=== PATIENT | female | born 1945 | race Caucasian/White ===

== ENCOUNTER 2017-10-15 07:02 | Day surgery (SDC) | payer MEDICARE, BC ==
[~2017-10-15 07:02] MED LIST: ACETAMINOPHEN 1,000 MG/100 ML BTL IV ONE; CEFAZOLIN 2 Gram 2 GM/50 ML BAG IVPB ONE; FAMOTIDINE 20MG TABLET PO ONE; MECLIZINE 25 MG TABLET PO ONE; METOCLOPRAMIDE 10 MG TABLET PO ONE
[2017-10-15] MEDS ORDERED: LIDOCAINE 1% W/EPI 1:200,000 MPF 30ML SQ ONE (07:03)
[2017-10-15] MEDS ORDERED: BUPIVACAINE 0.75% W/EPI MPF 30ML VIAL IVP ONE (07:03)
--- NOTE | 2017-10-15 15:10 | Operative Note - [facility] ---
DATE OF SURGERY: 10/15/17 PREOPERATIVE DIAGNOSES: 1. POST LUMBAR LAMINECTOMY SYNDROME, ICD-10 CODE = M96.1. 2. LUMBAR RADICULITIS, ICD-10 CODE = M54.16 AND M54.17. 3. IMPLANTED SPINAL INFUSION SYSTEM HYDROMORPHONE. OPERATION: 1. FLUOROSCOPICALLY-GUIDED PLACEMENT OF CURVED 24-GAUGE NICE NEEDLE WITH ACCESS PORT PROGRAMMABLE PUMP AT LEFT POSTERIOR/SUPERIOR GLUTEAL MARGIN. 2. ATTEMPTED ASPIRATION TO CLEAR CATHETER OF OPIOID AND CSF MIXTURE UNSUCCESSFUL. SURGEON: FITZ OCHOA D.O. ANESTHESIA: NONE. ANESTHESIA PROVIDER: NONE. INDICATION: This patient presents with a history of a spinal infusion device with some indications of malfunction. A recent refill suggested predicted residual volume to be 4.5 mL, the actual aspirated volume was 11.5 mL, which suggested changes and abnormalities in the infusion characteristics. She is here for diagnostics to evaluate catheter and pump by way of a rotor study. SURGERY: Intravenous line was placed. There was no sedation, only monitoring. Sterile prep, sterile technique. Under imaging, the access port to the pump at both posterior gluteal margins was noted. Skin infiltrated, a curved 24-gauge Nice needle was inserted into the access port. Attempts to clear the catheter were unsuccessful. At that point, any further studies could not be performed. Needle removed. The area was cleaned. Transported to the Recovery Room. Our conclusion at this point is that we have a catheter obstruction either complete or directional. Regardless, the catheter will need to be replaced. This has been explained to the patient. She will be discharged to home. She will continue with oral medications. We will schedule the replacement as quickly as possible. cc: Dr. Granados JOB NUMBER: [id number] MTDD
== END 2017-10-15 08:35 | disposition home or self-care (01) ==
LOC: SUR 07:02
PROVIDERS: ATTEND Pain Medicine Interventional Pain Medicine
DX: T85.610A Breakdown (mechanical) of cranial or spinal infusion catheter, initial encounter (principal); M96.1 Postlaminectomy syndrome, not elsewhere classified; M54.16 Radiculopathy, lumbar region; M54.17 Radiculopathy, lumbosacral region; E78.00 Pure hypercholesterolemia, unspecified; I48.91 Unspecified atrial fibrillation; Z79.01 Long term (current) use of anticoagulants; E03.9 Hypothyroidism, unspecified
CPT/HCPCS: J3490

== ENCOUNTER 2017-10-28 05:52 | Day surgery (SDC) | payer MEDICARE, BC ==
[2017-10-28] MEDS ORDERED: BUPIVACAINE 0.75% W/EPI MPF 30ML VIAL IVP ONE (05:53)
[2017-10-28] MEDS ORDERED: FENTANYL PF 100MCG/2ML VIAL IV ONE (05:53)
[2017-10-28] MEDS ORDERED: CEFAZOLIN 1G VIAL IM ONE (05:53)
[2017-10-28] MEDS ORDERED: HYDROMORPHONE HCL 2 MG/ML VIAL IV ONE ×2 (05:53)
[2017-10-28] MEDS ORDERED: PROPOFOL 10 MG/ML VIAL IV ONE (05:53)
[2017-10-28] MEDS ORDERED: LIDOCAINE 2% MDV (20MG/ML) 20ML VIAL IV ONE (05:53)
[2017-10-28] MEDS ORDERED: LIDOCAINE 1% W/EPI 1:200,000 MPF 30ML SQ ONE (05:53)
[2017-10-28] MEDS ORDERED: MIDAZOLAM HCL 2MG/2ML VIAL IV ONE (05:53)
[2017-10-28] MEDS ORDERED: VANCOMYCIN HCL 1,000 MG in DEXTROSE 5 % IN WATER 250 ML IVPB ONE ×4 (06:00→18:20)
[2017-10-28] MEDS ORDERED: HYDROMORPHONE HCL/PF 0.002 MG in 0.9 % SODIUM CHLORIDE 10ML VIA 0.998 ML IVP ONE ×4 (06:00)
[2017-10-28] MEDS ORDERED: MECLIZINE 25 MG TABLET PO ONE (06:00)
[2017-10-28] MEDS ORDERED: FAMOTIDINE 20MG TABLET PO ONE (06:00)
[2017-10-28] MEDS ORDERED: ACETAMINOPHEN 1,000 MG/100 ML BTL IV ONE (06:00)
[2017-10-28] MEDS ORDERED: METOCLOPRAMIDE 10 MG TABLET PO ONE (06:00)
[2017-10-28] MEDS ORDERED: HYDROMORPHONE HCL 0.4 GM in 0.9 % SODIUM CHLORIDE 10ML VIA 20 ML IV ONE (06:00)
--- NOTE | 2017-10-28 07:24 | History and Physical Report ---
DATE: 10/28/2017. CHIEF COMPLAINT AND HISTORY OF CHIEF COMPLAINT: This is a patient with a history of a postlaminectomy radiculitis. She has a spinal opioid infusion system infusing hydromorphone for pain control. Over the last number of refills , there was a volume discrepancy identified. This was followed through time with a suspected abnormality with respect to functionality. A diagnostic procedure which attempted to aspirate and clear the catheter was unsuccessful suggesting catheter obstruction and possible pump failure. She is here for replacement of components. PAST MEDICAL HISTORY: Chronic cardiovascular disease with cardiac arrhythmia. PAST SURGICAL HISTORY: Lumbar spinal surgery, foot surgery, gallbladder surgery. EMPLOYMENT STATUS: Retired. MEDICATIONS ON ADMISSION: To be provided. ALLERGIES: List to be provided. SOCIAL HISTORY: Caffeine. FAMILY HISTORY: Diabetes, cancer. REVIEW OF SYSTEMS: The patient seems appropriate and in no acute distress. The remainder of the systems review shows headaches, cardiac abnormalities, depression, and difficulty sleeping. PHYSICAL EXAMINATION: General: Height is 5 feet, 8 inches. Weight is 200 pounds. Vital Signs: Not available. HEENT: Within normal limits. Lungs: Clear. Heart: Regular rate and rhythm. Abdomen: Nontender. Musculoskeletal: Examination of the musculoskeletal system shows a pump at the posterior gluteal margin. The incisional sites for the pump and spinal catheter are all intact. Sensory more[place] are intact. Chronic pain pattern is bilateral lower extremities. IMPRESSION: 1. POSTLUMBAR LAMINECTOMY SYNDROME. 2. INTRACTABLE RADICULITIS. 3. SPINAL OPIOID INFUSION SYSTEM WITH PUMP AND CATHETER FAILURE. PLAN: The patient is here for replacement of pump and catheter. An overnight stay will be required. She will be started at a lower dose of her current base rate of hydromorphone 3.5 mg a day; she will be started at 2.5 mg a day. She will be monitored overnight for side effects and will then be discharged in the morning. cc: Darryl Granados M.D. JOB NUMBER: [id number] MTDD
[2017-10-28] MEDS ORDERED: NALOXONE 0.4 MG/1 ML VIAL IVP PRN (09:38)
[2017-10-28] MEDS ORDERED: SENNOSIDES/DOCUSATE SODIUM UD CAPSULE PO PRN ×2 (09:38)
[2017-10-28] MEDS ORDERED: METOCLOPRAMIDE 10 MG TABLET PO PRN (09:38)
[2017-10-28] MEDS ORDERED: METOCLOPRAMIDE HCL 10 MG/2 ML VIAL IVP PRN (09:38)
[2017-10-28] MEDS ORDERED: ACETAMINOPHEN 325 MG TAB PO PRN (09:38)
[2017-10-28] MEDS ORDERED: AL HYDROX/MAG HYDROX 30ML UD PO PRN (09:38)
[2017-10-28] MEDS ORDERED: HYDROCODONE/APAP 7.5/325MG TABLET PO PRN ×2 (09:38)
[2017-10-28] MEDS ORDERED: HYDROMORPHONE HCL 2 MG/ML VIAL IM PRN (09:38)
[2017-10-28] MEDS ORDERED: HYDROMORPHONE HCL 1 MG/ML CPJ IM PRN (09:38)
[2017-10-28] MEDS ORDERED: TEMAZEPAM 15 MG CAPSULE PO PRN ×2 (09:38)
[2017-10-28] MEDS ORDERED: RINGERS SOLUTION,LACTATED 1,000 ML IV SCH (09:38)
[2017-10-28] MEDS ORDERED: DIPHENHYDRAMINE HCL 25 MG CAPSULE PO PRN ×2 (09:38)
[2017-10-28] MEDS ORDERED: DIPHENHYDRAMINE HCL IV 50 MG/ML VIAL IVP PRN ×2 (09:38)
--- NOTE | 2017-10-28 12:15 | RADIOLOGY REPORT ---
EXAM: LUMBAR SPINE, SINGLE VIEW HISTORY: STIMULATOR PLACEMENT. TECHNIQUE: A single AP view of the lumbar spine was performed. FINDINGS: Two stimulator devices are in place. One tip is located at the L1- L2 level. The other tip is located at the T8-T9 level. IMPRESSION: STIMULATOR TIPS HAVE BEEN PLACED. THE TIPS ARE LOCATED AT L1-L2 LEVEL AND T8- T9 LEVEL. JOB NUMBER: [id number] MTDD
[2017-10-28] MEDS: OXYCODONE/APAP 10MG-325MG TABLET PO PRN ×3 (13:48→21:49)
[2017-10-28] MEDS: PATIENT OWN MED: ALLOPURINOL 300 MG PO SCH (13:51)
[2017-10-28] MEDS: METHIMAZOLE 5 MG PO SCH (13:51)
[2017-10-28] MEDS: PROPAFENONE 225 MG PO SCH ×2 (13:51→21:52)
[2017-10-28] MEDS: ROSUVASTATIN 40 MG PO SCH (13:52)
--- NOTE | 2017-10-28 15:26 | Operative Note - [facility] ---
DATE OF SURGERY: 10/28/17 PREOPERATIVE DIAGNOSES: 1. POST LUMBAR LAMINECTOMY SYNDROME, ICD-CODE = M96.1. 2. LUMBAR RADICULITIS, ICD-10 CODE M54.16 AND M54.17. 3. SPINAL OPIOID INFUSION SYSTEM, PUMP AND CATHETER, NONFUNCTIONAL. OPERATION: 1. INCISION, SUBCUTANEOUS DISSECTION, AND REMOVAL OF INDWELLING SPINAL CATHETER. 2. INCISION, SUBCUTANEOUS DISSECTION, AND REMOVAL OF INDWELLING PROGRAMMABLE PUMP AT LEFT POSTERIOR GLUTEAL MARGIN. 3. FLUOROSCOPICALLY-GUIDED SPINAL ACCESS AT L3-4, PLACEMENT OF THIN-WALLED SPINAL CATHETER T10. 4. DIAGNOSTIC MYELOGRAPHY WITH RADIOLOGIC SUPERVISION AND INTERPRETATION. 5. INCISION, SUBCUTANEOUS DISSECTION, AND ANCHORING OF SPINAL CATHETER TO SUPRASPINOUS FASCIA USING ANCHORING DEVICE AND NONABSORBABLE SUTURE. 6. REVISION OF LEFT POSTERIOR GLUTEAL POUCH FOR PLACEMENT OF NEW PUMP IDENTIFIED A MEDTRONIC 20 ML PROGRAMMABLE PRE-FILLED HYDROMORPHONE 20 MG PER ML CONCENTRATION. 7. TUNNELING SPINAL CATHETER TO PUMP POUCH, INTERFACE SPINAL CATHETER WITH SECOND CATHETER COMPONENT TO PUMP. 8. ANTIBIOTIC IRRIGATION. BOVIE FOR HEMOSTASIS. PLACEMENT OF PUMP INTO POUCH SECURING TO FASCIA WITH NONABSORBABLE SUTURE AND PUMP EYELET. 9. CLOSURE OF INCISIONS VICRYL FOR FASCIA, RADHA FOR SKIN. 10. EPIDURAL BLOOD PATCH AT L4-5, 20 ML AUTOLOGOUS BLOOD STERILE TECHNIQUE LEFT ANTECUBITAL. 11. PROGRAMMING OF PUMP TO DELIVER BY CONTINUOUS INFUSION HYDROMORPHONE AT 2.5 MG A DAY. SURGEON: FITZ OCHOA D.O. ANESTHESIA: LOCAL SEDATION. ANESTHESIA PROVIDER: SILVER MICHELLE CRNA. INDICATION: This patient presents with a history of intractable postlaminectomy radiculitis. A spinal infusion system in place for a number of years began to fail approximately two to three months ago. She is here for replacement of pump and catheter. Diagnostics confirming catheter obstruction. PROCEDURE: Intravenous line, vital sign monitoring, IV sedation, prepped and draped sterile technique. Patient position prone. Sterile prep. Sterile technique. The previous incision for the spinal catheter infiltrated, incision made, and subcutaneous dissection was conducted to the catheter. The suture and the catheter removed. A pursestring placed to stop CSF leak. At the left posterior gluteal margin pump pouch site, skin infiltrated, incision made, and subcutaneous dissection was conducted to the pump. The pump and its connections removed. At the midline incisional site for the previous catheter, skin was infiltrated, incision was extended, and at L3-4 a 20-gauge spinal needle beveled with a long axis paramedian approach was used to gain entrance into the spinal space. With CSF flow, that noted laterally with careful and meticulous technique, no paresthesias noted. Thin-walled catheter was advanced without difficulty T10. Diagnostic myelography confirming appropriate flow characteristics for the spinal space. No bolus given. The catheter was then anchored to the supraspinous fascia, once the needle was removed, with an anchoring device and nonabsorbable suture. The left posterior pump pouch was then revised and enlarged. A tunneling tool was used to carry the spinal catheter to the pump pouch and a new catheter was interfaced to the spinal catheter. This secondary catheter component was interfaced to a new programmable pump 20 mL [employer]; previous pump nonfunctional. The pump had been pre-filled Hydromorphone at 20 mg per mL. The interface between the revised catheter and the new pump was then performed. Diagnostic myelography was performed under radiologic supervision and interpretation confirming appropriate catheter position and functionality. The pump was placed in the pouch and secured with a nonabsorbable suture then both incisions were closed Vicryl for fascia and radha for skin. An epidural blood patch was then performed at L4-5, one level below the dural puncture with 20 mL of autologous blood sterile technique, left antecubital. The dressings were placed including a pressure dressing. The patient is on blood thinners, which created a significant amount of oozing. The pump was programmed to deliver Hydromorphone at 2.5 mg a day; a slight reduction from the previous 3.5. The dressings were reinforced. She was transported to the Recovery Room flat, pillow under head and knees for the blood patch. She will stay flat for four hours, slowly elevated for one but stay with the hospital for the next 24 hours and be discharged in the morning if no side-effects. DISCHARGE INSTRUCTIONS IN THE MORNIN. Sites remain clean and dry. No showering or bathing until she comes to the office in 7-10 days. The office will contact the patient at home to set up the appointment. 2. Standard medications resumed including Levaquin, the antibiotic, 500 mg once a day for 14 days. 3. All other medications resumed. All other instructions including keeping activities low, normal diet, until she is seen in the office. cc: Dr. Granados JOB NUMBER: [id number] MTDD
[2017-10-28] MEDS: LEVOFLOXACIN 500 MG TABLET PO SCH (21:44)
[2017-10-28] MEDS: CARVEDILOL 25 MG PO SCH (21:51)
[2017-10-28] MEDS ORDERED: PATIENT OWN MED: EZETIMIBE 10 MG PO SCH (22:00)
[2017-10-28] MEDS ORDERED: PATIENT OWN MED: CITALOPRAM 40 MG PO SCH (22:00)
[2017-10-28] MEDS ORDERED: TOPIRAMATE 100MG TABLET PO SCH (22:00)
[2017-10-29] MEDS: OXYCODONE/APAP 10MG-325MG TABLET PO PRN ×3 (02:15→16:53)
[2017-10-29] MEDS: LEVOFLOXACIN 500 MG TABLET PO SCH (06:21)
[2017-10-29] MEDS ORDERED: DIGOXIN 125 MCG PO SCH (08:00)
[2017-10-29] MEDS: CARVEDILOL 25 MG PO SCH (08:00)
[2017-10-29] MEDS ORDERED: PATIENT OWN MED: FUROSEMIDE 40 MG PO SCH (08:00)
[2017-10-29] MEDS: PROPAFENONE 225 MG PO SCH ×2 (08:01→12:15)
[2017-10-29] MEDS: ACETAMINOPHEN 325 MG TAB PO PRN ×2 (08:02→12:21)
[2017-10-29] MEDS: METHIMAZOLE 5 MG PO SCH (12:15)
[2017-10-29] MEDS: PATIENT OWN MED: ALLOPURINOL 300 MG PO SCH (12:15)
[2017-10-29] MEDS: ROSUVASTATIN 40 MG PO SCH (15:10)
== END 2017-10-29 17:00 | disposition home or self-care (01) ==
LOC: SUR 05:52 → MEDSURG 10:24 → SUR 10-29 17:00
PROVIDERS: ATTEND Pain Medicine Interventional Pain Medicine
DX: T85.890A Other specified complication of nervous system prosthetic devices, implants and grafts, initial encounter (principal); M96.1 Postlaminectomy syndrome, not elsewhere classified; M54.17 Radiculopathy, lumbosacral region; M54.16 Radiculopathy, lumbar region; I48.91 Unspecified atrial fibrillation; Z79.01 Long term (current) use of anticoagulants; E03.9 Hypothyroidism, unspecified; I10 Essential (primary) hypertension
CPT/HCPCS: 62350; 62362; 00630; 62367; 72020; 94760 ×2; Q9967; J3370; J1170 ×2; J3010; J3490 ×2; J0690; J7060; J7120